=== PATIENT | female | born 1965 | race Caucasian/White ===

== ENCOUNTER 2020-07-18 11:00 | Outpatient (CLI) | payer OTHER ==
--- NOTE | 2020-07-25 07:56 | Mammography Report ---
BILATERAL DIGITAL SCREENING MAMMOGRAM 3D/2D: 07/18/2020 CLINICAL: Routine screening. Comparison made to 05/19/2019 and 03/08/2018 examinations. There are scattered fibroglandular elements in both breasts. There is a 0.7 cm oval asymmetry with an indistinct margin in the left breast middle depth central to the nipple seen on the mediolateral oblique view only 3.8 cm from the nipple. No other significant masses, calcifications, or other findings are seen in either breast. IMPRESSION: INCOMPLETE: NEEDS ADDITIONAL IMAGING EVALUATION A diagnostic left mammogram and ultrasound is recommended for further evaluation of a 0.7 cm oval asy mmetry in the left breast. This exam was interpreted at Station ID: [id number]. NOTE: For mammograms, a report in lay terms will be sent to the patient. Approximately 15% of breast malignancies will not be visualized mammographically. In the management of a palpable breast mass, a negative mammogram must not discourage biopsy of a clinically suspicious lesion. Electronically Signed By: Arnulfo Anderson M.D. jr/:07/24/2020 13:10:26 ACR BI-RADS Category 0: Incomplete 3340F PARENCHYMAL PATTERN: (A) - The breast(s) demonstrate(s) scattered fibroglandular densities. BI-RADS CATEGORY: (0) - 0 RECOMMENDATION: (ADDMAM) - Recommend additional mammographic views. [id number] Immediate follow-up LATERALITY: (B)
== END 2020-07-18 11:01 | disposition home or self-care (01) ==
LOC: DI 11:00
DX: Z12.31 Encounter for screening mammogram for malignant neoplasm of breast (principal); R92.8 Other abnormal and inconclusive findings on diagnostic imaging of breast
CPT/HCPCS: 77063; 77067

== ENCOUNTER 2020-08-13 14:11 | Outpatient (CLI) | payer OTHER ==
[2020-08-13] MEDS ORDERED: BUFFERED LIDOCAINE 10 ML SYRINGE ONE (14:25)
[2020-08-13] MEDS ORDERED: BUFFERED LIDOCAINE 10 ML SYRINGE IU ONE (16:35)
--- NOTE | 2020-08-14 09:58 | Mammography Report ---
UNILATERAL LEFT DIGITAL DIAGNOSTIC MAMMOGRAM 3D/2D: 08/13/2020 CLINICAL: Post left breast ultrasound biopsy clip placement imaging. Comparison is made to exams dated: 08/07/2020 ultrasound, 08/07/2020 mammogram, 07/18/2020 mammogram - [facility], and 05/19/2019 mammogram - [facility]. There are scatter ed fibroglandular elements in left breast. There is a mass in the left breast at 3 o'clock posterior depth with a biopsy clip in place. IMPRESSION: POST PROCEDURE MAMMOGRAM FOR MARKER PLACEMENT Biopsy clip present in the left breast mass. This exam was interpreted at Station ID: [id number]. NOTE: For mammograms, a report in lay terms will be sent to the patient. Approximately 15% of breast malignancies will not be visualized mammographically. In the management of a palpable breast mass, a negative mammogram must not discourage biopsy of a clinically suspicious lesion. Electronically Signed By: Arnulfo Anderson M.D. jr/:08/14/2020 09:37:55 ACR BI-RADS Category Post-procedure mammogram for marker placement PARENCHYMAL PATTERN: (A) - The breast(s) demonstrate(s) scattered fibroglandular densities. BI-RADS CATEGORY: () - Unspecified - other recall n/a LATERALITY: (B)
--- NOTE | 2020-08-15 07:03 | Ultrasound Report ---
ULTRASOUND GUIDED BIOPSY LEFT BREAST USING VACUUM DEVICE WITH MARKING DEVICE INSERTED AND POST DIGITA L MAMMOGRAPHIC IMAGIN08/13/2020 CLINICAL: Left breast mass. PATIENT CONSENT: Risks (minor bleeding, infection, vasovagal reaction and repeat procedure), benefits and alternatives were explained to the patient and written informed consent was obtained. Correlation is made to exams dated: 08/13/2020 mammogram, 08/07/2020 ultrasound, 08/07/2020 mammogram, 07/18/2020 mammogram - [facility], 05/19/2019 mammogram, and 03/08/2018 mammogram - [facility]. An ultrasound guided biopsy using real-time ultrasound was performed for the 0.8 cm mass located in t left breast at 4 o'clock posterior depth 3 cm from the nipple. This was described on the previous ultrasound report. The skin was prepped in the usual manner. Local anesthetic was administered to the access site. A skin roger was made in the breast. The abnormality was approached from the latera l aspect. A 12 gauge biopsy needle was placed adjacent to the abnormality under ultrasound guidance. Once the needle was documented to be in the correct location, three specimens were obtained using t [employer] system. A clip was inserted into the biopsy cavity. A skin closure strip and a ster ile dressing were applied to the access site. Post procedure digital mammographic imaging demonstrat es the location device at the targeted area and partial removal of the abnormality. The specimens we re sent to the laboratory for pathological analysis. IMPRESSION: ULTRASOUND GUIDED BIOPSY BENIGN Ultrasound guided biopsy of the 0.8 cm mass in the left breast at 4 o'clock posterior depth 3 cm from the nipple was successful with no apparent post procedure complications. Pathology indicates benign fibroadenoma (FA). Pathology results are concordant with imaging findings . Return to annual mammogram screening schedule is recommended. This exam was interpreted at Station ID: [id number]. Arnulfo Anderson M.D. jr/:08/14/2020 13:48:28 BI-RADS CATEGORY: () - Mammogram [id number] return to screening LATERALITY: (B)
== END 2020-08-13 14:12 | disposition home or self-care (01) ==
LOC: DI 14:11
PROVIDERS: ATTEND Family Medicine
DX: D24.2 Benign neoplasm of left breast (principal); R92.0 Mammographic microcalcification found on diagnostic imaging of breast
CPT/HCPCS: 19083

== ENCOUNTER 2021-08-13 10:17 | Outpatient (CLI) | payer OTHER ==
--- NOTE | 2021-08-14 11:48 | Mammography Report ---
BILATERAL DIGITAL SCREENING MAMMOGRAM 3D/2D: 08/13/2021 CLINICAL: Routine screening. Comparison is made to exams dated: 08/13/2020 ultrasound biopsy, 08/13/2020 mammogram, 08/07/2020 ultra sound, 08/07/2020 mammogram, 07/18/2020 mammogram - , and 05/19/2019 mammogr am - [facility]. The tissue of both breasts is extremely dense, which lowers the sens itivity of mammography. There is a biopsy clip in the left breast. No significant masses, calcifications, or other findings are seen in either breast. There has been no significant interval change. IMPRESSION: NEGATIVE There is no mammographic evidence of malignancy. A 1 year screening mammogram is recommended. This exam was interpreted at Station ID: [id number]. NOTE: For mammograms, a report in lay terms will be sent to the patient. Approximately 15% of breast malignancies will not be visualized mammographically. In the management of a palpable breast mass, a negative mammogram must not discourage biopsy of a clinically suspicious lesion. Electronically Signed By: Vincent Gonzales M.D. ddp/penrad:08/13/2021 16:16:06 ACR BI-RADS Category 1: Negative 3341F PARENCHYMAL PATTERN: (VD) - The breast(s) demonstrate(s) extremely dense parenchyma, limiting the sen sitivity of mammography. BI-RADS CATEGORY: (1) - 1 RECOMMENDATION: (ANNUAL) - Recommend routine annual screening mammography. [id number] 1 year screening LATERALITY: (B)
== END 2021-08-13 10:18 | disposition home or self-care (01) ==
LOC: DI 10:17
DX: Z12.31 Encounter for screening mammogram for malignant neoplasm of breast (principal)